=== PATIENT | female | born 1945 | race Caucasian/White ===

== ENCOUNTER → 2017-06-13 | Day surgery (SDC) | payer MEDICARE ==
[~2017-06-13] VITALS: Ht 170.2 cm; Wt 104.7 kg
[2017-06-13] VITALS (8 sets, daily range): BP systolic 138–176; BP diastolic 43–57; PULSE 52–55; RESP 16–18; O2SAT 92–97
[~2017-06-13] MED LIST: ASPI-973 PO; ATEN25TA PO; CHOL500011 PO; DIGO250T72 PO; DULO30CA PO; FURO40TA4 PO; GABA-500 PO; HYDR-4003 PO; Heparin 1,000 Unit/mL 10 mL Inj ONE; Heparin 10,000 Unit/1,000 mL NS Premix IV ONE; INSLIS SUBQ; INSU100V7 SUBQ; LEVO100T6 PO; LOSA50TA37 PO; acyclovir PO; fentaNYL-PF 50 mCg/mL 2 mL Inj ONE
--- NOTE | 2017-06-13 12:00 | NUR ---
Dr Cruz informed that pt's platelet count on 06/09 was [address] Cruz would like CBC repeated.
[2017-06-13 12:34] LABS: BASOPHILS % (AUTO) 5.5 % (0-3); MONOCYTES % (AUTO) 8.7 % (4-12); Mean Corpuscular Hemoglobin 32.1 pg (27.0-35.0); Mean Corpuscular Volume 92.4 fL (81-100); Platelet Count 84 bil/L (150-400)
--- NOTE | 2017-06-13 14:55 | NUR ---
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 SEE FLOW SHEET
--- NOTE | 2017-06-13 16:03 | DRSVH ---
PROCEDURE: CV TUNNEL CATH PLCMNT 1. Sonographic guidance for venous access. 2. Conscious sedation for 30 minutes. 3. Right internal jugular vein tunneled hemodialysis catheter placement. 4. Fluoroscopic guidance for catheter placement. INDICATIONS: End-stage renal disease TECHNIQUE: The indications, alternatives, benefits, risks, and complications of the procedure were e xplained to the patient and any family members present. Informed written consent was obtained and pl aced in the chart. The patient was brought to the angiography suite, and conscious sedation was admi nistered intravenously by jail staff, while continuous cardiorespiratory monitoring was pe rformed. Maximum sterile barrier technique was employed per standard protocol, including hand hygiene, cap, ma sk, sterile gown and gloves, and 2% chlorhexidine. Sterile ultrasound probe cover was also utilized. 1% lidocaine was used for local anaesthesia. Under sonographic guidance, the right internal jugular vein was accessed with a Micropuncture set. An 0.035J wire was advanced into the vena cava. Subcuta neous tunnel was created within the right anterior chest wall, through which a 14.5 Brazilian double lum en tunneled hemodialysis catheter was advanced. Following sequential venotomy tract dilation, the ca theter was advanced through the peel-away sheath and the tip was placed at the cavoatrial junction. Peel-away sheath was removed. Adequate flow was obtained through both lumens of the catheter. The v enotomy was closed with Dermabond, and the catheter was fastened to the skin with Ticron. Both lumen s were flushed with heparinized saline. The patient tolerated the procedure without difficulty and was in stable condition at the conclusion of the procedure. COMPARISON: None. FINDINGS: The right internal jugular vein is patent by ultrasound. Fluoroscopic imaging demonstrates tip of th e catheter at the cavoatrial junction. IMPRESSION: Right internal jugular vein tunneled hemodialysis catheter placement using sonographic and fluoroscop ic guidance. Dictated by: Phylicia Cruz M.D. on 06/13/2017 at 16:00 Approved by: Phylicia Cruz M.D. on 06/13/2017 at 16:01
--- NOTE | 2017-06-13 16:50 | NUR ---
Recovery/Discharge Care assumed about 1515. VSS. Denied pain initially but then stated pain starting before discharge but wanted to go home and take home medication. Recovery complete at 1600 no bleeding or hematoma. Discharge instructions reviewed, see sheets and pt. and verbalized understanding. IV discontinued intact. Discharged via w/c with and all belongings after ambulating in no distress.
== END | disposition home or self-care (01) ==
LOC: SOUO 00:52
PROVIDERS: ATTEND Radiology Vascular & Interventional Radiology
DX: I12.0 Hypertensive chronic kidney disease with stage 5 chronic kidney disease or end stage renal disease (principal); E11.21 Type 2 diabetes mellitus with diabetic nephropathy; E11.22 Type 2 diabetes mellitus with diabetic chronic kidney disease; E11.40 Type 2 diabetes mellitus with diabetic neuropathy, unspecified; N18.6 End stage renal disease; D63.1 Anemia in chronic kidney disease; N25.0 Renal osteodystrophy; C90.00 Multiple myeloma not having achieved remission; Z79.4 Long term (current) use of insulin
CPT/HCPCS: 36415; 36558; 76937; 77001; 85025; 99152; C1750; C1769; C1887; J1644; J2250; J3010